=== PATIENT | female | born 1965 | race Caucasian/White ===

== ENCOUNTER 2017-04-11 19:17 | Observation (INO) | payer BC ==
[~2017-04-11] VITALS: Ht 167.6 cm; Wt 103.9 kg
[~2017-04-11 19:17] MED LIST: BENICAR20 MG PO; BISOPROLOL/HCTZ PO; CHOLESTEROL MED PO; OMEPRAZOLE20 MG; PANTOPRAZOLE SO40 MG PO
[2017-04-11 22:52] LABS: BASOPHILS # (AUTO) 0.1 (0.0-0.1); BASOPHILS % 0.8 % (0.0-1.0); EOSINOPHILS # (AUTO) 0.4 (0.0-0.4); HEMATOCRIT 40.2 % (34.2-44.1); HEMOGLOBIN 13.5 g/dL (12.0-16.0); LYMPHOCYTES # (AUTO) 2.4 (1.0-3.2); LYMPHOCYTES % 37.7 % (18.0-39.1); MEAN CORPUSCULAR HEMOGLOBIN 28.2 pg (28-32); MEAN CORPUSCULAR HGB CONC 33.6 g/dL (31-35); MEAN CORPUSCULAR VOLUME 83.9 fL (81-99); MONOCYTES # (AUTO) 0.4 (0.2-0.8); NEUTROPHILS % 47.2 % (38.7-80.0); PLATELET COUNT 282 x10e3/uL (140-360); RED BLOOD COUNT 4.79 x10e6/uL (3.6-5.1); RED CELL DISTRIBUTION WIDTH 12.9 % (11.7-14.4)
[2017-04-11 22:55] LABS: BILIRUBIN,URINE NEGATIVE (NEGATIVE); KETONES,URINE NEGATIVE (NEGATIVE); LEUKOCYTE ESTERASE ,URINE 1+ (NEGATIVE); NITRITE,URINE NEGATIVE (NEGATIVE); PROTEIN,URINE DIPSTICK NEGATIVE (NEGATIVE); URINE UROBILINOGEN 0.2 mg/dL (0.2 - 1)
[2017-04-11 22:57] LABS: INR 0.97; PROTHROMBIN TIME 12.1 seconds (11.9-14.5)
[2017-04-11 22:57] LABS: CLARITY,URINE CLEAR (CLEAR); COLOR,URINE STRAW (YELLOW)
[2017-04-11 22:58] LABS: PARTIAL THROMBOPLASTIN TIME 28.4 seconds (23.8-35.5)
[2017-04-11] MEDS ORDERED: ASPIRIN 81 MG CHEW TAB PO ONE (23:00)
[2017-04-11 23:02] LABS: BACTERIA,URINE FEW /HPF; EPITHELIAL CELLS,URINE FEW /LPF
[2017-04-11 23:07] LABS: ALANINE AMINOTRANSFERASE 29 IU/L (0-55); ALBUMIN 4.4 g/dL (3.5-5.0); ALBUMIN/GLOBULIN RATIO 1.2 (0.8-2.0); ALKALINE PHOSPHATASE 100 IU/L (40-150); ANION GAP 15.9 mmol/L (8-16); BLOOD UREA NITROGEN 13 mg/dL (7-26); BUN/CREATININE RATIO 15 (6-25); CALCIUM 9.6 mg/dL (8.4-10.2); CARBON DIOXIDE 24 mmol/L (22-29); CHLORIDE 106 mmol/L (98-107); CREATINE KINASE 114 IU/L (29-168); CREATININE, SERUM 0.87 mg/dL (0.57-1.11); EST GLOMERULAR FILTRATION RATE > 60 ML/MIN (60-); GLUCOSE 96 mg/dL (74-118); POTASSIUM 3.9 mmol/L (3.5-5.1); SODIUM 142 mmol/L (136-145)
--- NOTE | 2017-04-11 23:50 | Diagnostic Imaging Report ---
EXAMINATION: CHEST SINGLE (PORTABLE) INDICATION: Chest pain. COMPARISON: None FINDINGS: TUBES and LINES: None. LUNGS: Lungs are well inflated. Lungs are clear. There is no evidence of pneumonia or pulmonary edema. PLEURA: No pleural effusion or pneumothorax. HEART AND MEDIASTINUM: The cardiomediastinal silhouette is unremarkable. BONES AND SOFT TISSUES: No acute osseous lesion. Anterior cervical spine fusion. Soft tissues are unremarkable. UPPER ABDOMEN: No free air under the diaphragm. IMPRESSION: No acute thoracic abnormality. Signed by: Dr. Evan Valadez M.D. on 04/11/2017 11:46 PM
--- NOTE | 2017-04-12 01:04 | Diagnostic Imaging Report ---
EXAMINATION: Head CT without contrast. HISTORY:Headache. COMPARISON:None. TECHNIQUE: Multidetector axial images were obtained from the foramen magnum to the vertex without contrast. The images were reconstructed using brain and bone algorithms. Thin section brain images were reformatted into coronal and sagittal planes. Intravenous contrast: None IMAGE QUALITY: Acceptable. FINDINGS: Skull/scalp: No abnormality. Parenchyma: No abnormal density. No acute hemorrhage, mass or acute major vascular territorial infarct. Arteries: No density suggestive of thrombosis. Dural sinuses: No abnormal density suggestive of thrombosis. Ventricles: No hydrocephalus or displacement. Extra-axial spaces: No abnormal density. Brain volume: Normal for age. Craniocervical junction: No mass, Chiari malformation, or basilar invagination. Sella: No mass. Paranasal/mastoid sinuses: Imaged portions unremarkable. IMPRESSION: No intracranial abnormality. Signed by: Dr. Emani Simon M.D. on 04/12/2017 1:01 AM
[2017-04-12] MEDS ORDERED: KETOROLAC TROMETHAMINE 30 MG/ML VIAL IV STA (01:19)
[2017-04-12] MEDS ORDERED: CEFTRIAXONE SOD 1 GM VIAL IV SCH (01:30)
--- OUTSIDE RECORDS SUMMARY | 2017-04-12 02:44 | XMS REPORT ---
Author Author [facility] Address Unknown Phone Unavailable Care Team Providers Care Plush Weaver Name Role Phone ISAAC BLAKE Unavailable Unavailable Problems This patient has no known problems. Allergies, Adverse Reactions, Alerts This patient has no known allergies or adverse reactions. Medications This patient has no known medications. Results Test Description Test Time Test Comments Text Results Atomic Results Result Comments CT BRAIN WO [place] [address] Patient Name: RAJAT HICKMAN MR #: [id number] : 1965 Age/Sex: 51/F Req #: [id number] Adm Physician: Ordered by: ISAAC BLAKE MD Report #: [id number] Location: ER Room/Bed: Procedure: [id number] CT/CT BRAIN WO Exam Date: Exam Time: REPORT STATUS: Signed EXAMINATION: Head CT without contrast. HISTORY: Headache. COMPARISON:None. TECHNIQUE: Multidetector axial images were obtained from the foramen magnum to the vertex without contrast. The images were reconstructed using brain and bone algorithms. Thin section brain images were reformatted into coronal and sagittal planes. Intravenous contrast: None IMAGE QUALITY: Acceptable. FINDINGS: Skull/ scalp: No abnormality. Parenchyma: No abnormal density. No acute hemorrhage, mass or acute major vascular territorial infarct. Arteries: No density suggestive of thrombosis. Dural sinuses: No abnormal density suggestive of thrombosis. Ventricles: No hydrocephalus or displacement. Extra-axial spaces: No abnormal density. Brain volume: Normal for age. Craniocervical junction: No mass, Chiari malformation, or basilar invagination. Sella: No mass. Paranasal/ mastoid sinuses: Imaged portions unremarkable. IMPRESSION: No intracranial abnormality. Signed by: Dr. Emani Simon M.D. on 2017 1:01 AM Dictated By: EMANI SIMON MD 0 Transcribed By: TRAN on 04/12/17100 COPY TO: ISAAC BLAKE MD CHEST SINGLE (PORTABLE) [place] [address] Patient Name: RAJAT HICKMAN MR #: [id number] : 1965 Age/Sex: 51/F Req #: [id number] Adm Physician: Ordered by: ISAAC BLAKE MD Report #: [id number] Location: ER Room/Bed: Procedure: [id number] DX/CHEST SINGLE (PORTABLE) Exam Date: 04/11/17 Exam Time: 2305 REPORT STATUS: Signed EXAMINATION: CHEST SINGLE (PORTABLE) INDICATION: Chest pain. COMPARISON: None FINDINGS: TUBES and LINES: None. LUNGS: Lungs are well inflated. Lungs are clear. There is no evidence of pneumonia or pulmonary edema. PLEURA: No pleural effusion or pneumothorax. HEART AND MEDIASTINUM: The cardiomediastinal silhouette is unremarkable. BONES AND SOFT TISSUES: No acute osseous lesion. Anterior cervical spine fusion. Soft tissues are unremarkable. UPPER ABDOMEN: No free air under the diaphragm. IMPRESSION: No acute thoracic abnormality. Signed by: Dr. Evan Valadez M.D. on 04/11/2017 11: 46 PM Dictated By: EVAN GABRIEL MD 45 Transcribed By: TRAN on 04/11/172345 COPY TO: ISAAC BLAKE MD
[2017-04-12] MEDS ORDERED: ONDANSETRON HCL INJ 2 MG/ML VIAL IV PRN (02:45)
[2017-04-12] MEDS ORDERED: KETOROLAC TROMETHAMINE 30 MG/ML VIAL IV PRN (02:45)
[2017-04-12] MEDS ORDERED: NITROGLYCERIN 0.4 MG SUBL SL PRN (02:45)
[2017-04-12 05:37] LABS: CREATINE KINASE 82 IU/L (29-168)
[2017-04-12] MEDS ORDERED: ASPIRIN 81 MG ENTERIC COATED PO SCH (09:00)
[2017-04-12] MEDS ORDERED: FAMOTIDINE 20 MG/2 ML VIAL IV SCH (09:00)
[2017-04-12] MEDS ORDERED: AMLODIPINE BESYLATE 5 MG TAB PO SCH (09:00)
[2017-04-12 12:07] LABS: CHOL/HDL RATIO 5.9 (3.0-3.6)
[2017-04-12] MEDS ORDERED: REGADENOSON 0.4 MG/5 ML SYR IV ONE (12:21)
[2017-04-12] MEDS ORDERED: HCTZ PO PRN (13:30)
[2017-04-12] MEDS ORDERED: BISOPROLOL PO PRN (13:30)
[2017-04-12] MEDS ORDERED: [UNRECOGNIZED DRUG - REMARK] PO PRN (13:30)
[2017-04-12 13:35] VITALS: BP 164/82
--- NOTE | 2017-04-12 14:09 | Consultation ---
DATE OF CONSULTATION: April 12, 2017 CARDIAC CONSULTATION REASON FOR CONSULTATION: Chest pain. HISTORY: A delightful 51-year-old lady who is known with hypertension, GERD and degenerative joint disease of the right knee. Patient was in her usual status of health. She was not feeling well. She was having headaches. She is not feeling herself. Also, she complained of pain over the left breast. She came to the emergency room. She told me her blood pressure was elevated at 200. Currently her blood pressure is good. She is not compliant with her amlodipine. She is followed by a bank vault attendant who is following her. Her latest stress test was 2 years ago. Currently she is feeling better. She describes her illness starting with headache, nauseated, not feeling well and she almost vomited. She was very weak. She was drained. Patient's EKG showed normal sinus rhythm. Lateral T-wave inversions were noted. Currently she is feeling better. Her headache subsiding, her nausea/vomiting is better, and her chest pain almost gone. Her cardiac enzymes were normal. REVIEW OF SYSTEMS: Was done to all systems, will be summarized for clarity. GENERAL: No fever. No chills. No recent cold-like illness. HEENT: No congestion. PULMONARY: No cough. No hemoptysis. CARDIAC: Patient's activities are limited because of her knee. At her level of activity, there is no angina. : No hematuria. No dysuria. NEUROMUSCULAR: Back pain. SOCIAL HISTORY: Patient is nonsmoker. Not alcohol drinker. She lives with her family. 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 HOME MEDICATIONS: Omeprazole and amlodipine 2.5 mg a day. ALLERGIES: BACTRIM. PAST MEDICAL HISTORY: 1. Hypertension. 2. GERD. 3. Severe right knee pain. 4. Similar episode like that 2 years ago. Questionable details. No surgery. 5. twice. 6. Breast reduction surgery. 7. Tummy tuck. 8. Cervical spine surgery. 9. Right knee surgery. FAMILY HISTORY: Mother alive, doing well. She does not have anything. Occasional irregular heart beating but no coronary artery disease. Father of colon cancer. No brother. Four healthy sisters. PHYSICAL EXAMINATION: VITALS: Height of 5 feet 6 inches, weight of 230 pounds. Blood pressure 110/80. Heart rate of 70. Respiratory rate of 18. HEENT: Pupils are reactive. NECK: No elevation of jugular venous pulsation. No bruit. CHEST: Clear to auscultation and percussion. HEART: PMI 5th left intercostal space. Normal 1st and 2nd heart sounds. ABDOMEN: Soft with good bowel sounds. EXTREMITIES: No cyanosis. No clubbing. No edema. NEUROLOGIC: Awake, alert, oriented. No motor or sensory deficits. LABORATORY DATA: Cardiac enzymes are normal. Sodium of 142, potassium 3.9, BUN of 13, creatinine of 0.9. Hemoglobin of 13.5, hematocrit 40%. EKG showing normal sinus rhythm, lateral T-wave changes. Chest x-ray showed no major abnormalities. CT head no acute changes. IMPRESSION AND PLAN: 1. Hypertension. 2. Obesity. 3. Nausea/vomiting. Questionable etiology. 4. Vague chest pain. 5. No recent travel to suggest PE, or pulmonary embolism. 6. Severe degenerative joint disease of the right knee. Cardiac-negrete, would recommend doing stress test. It will be Lexiscan because of patient's inability to exercise. Patient's questions are answered. Will follow patient's progression with you and would like to thank you for your kind referral. Job#: [id number] EV
[2017-04-12 16:03] VITALS: BP 170/81
--- NOTE | 2017-04-12 18:44 | History and Physical ---
Patient is a 51-year-old female with a past medical history positive for hypertension and hypercholesterolemia. Patient came in with chest pain. She was found to have very high blood pressure. Patient already had an adenosine Cardiolite stress test. Report is pending. Dr. Becerra has been consulted from the cardiology point of view. The chest pain has resolved. Apparently, the chest pain was like a tightness that radiated to the left upper extremity and continuously apparently. REVIEW OF SYSTEMS CARDIOVASCULAR: She has chest pain which is resolved. No palpitations. RESPIRATORY: She did have shortness of breath. GASTROINTESTINAL: She had nausea and vomiting with the chest pain, which are resolved. No diarrhea. No blood in the stools. No hematemesis. Occasionally, she has left upper quadrant pain. GENITOURINARY: No frequency. No dysuria. ALLERGIES: SHE IS ALLERGIC TO SULFA DRUGS. SOCIAL HISTORY: She does not smoke. She drinks occasionally. PAST MEDICAL HISTORY: History of hypertension, gastroesophageal reflux disease and hypercholesterolemia. PHYSICAL EXAMINATION HEART: Shows regular rhythm. Normal S1 and S2 sounds. LUNGS: Clear bilaterally. ABDOMEN: Soft. EXTREMITIES: Show no evidence of edema or trauma. Troponin times 2 are negative. The EKG showed normal sinus rhythm, nonspecific abnormalities. On the BMP, sodium 142, potassium 3.9, chloride 106, CO2 24, BUN 13, creatinine 0.87, glucose 96. On the CBC, white blood count 6.32, hemoglobin 13.5, hematocrit 40.2, and platelet count 282,000. PT 12.1, INR 0.87 and PTT 28.4. AST 21, ALT 29, total bilirubin 0.3, alkaline phosphatase 100. FINAL IMPRESSION 1. Chest pain. 2. Hypertension. 3. Obesity. 4. Hypercholesterolemia. 5. She has also some evidence of a urinary tract infection. PLAN OF TREATMENT: Continue Rocephin 1 g IVPB daily. Nitroglycerin 0.4 mg sublingual every 5 minutes p.r.n. for chest pain. No more than 3 tablets. Continue Pepcid 20 mg twice a day, Zofran 4 mg q.4 h. as needed, Toradol 50 mg q.6 h. as needed, amlodipine 5 mg daily. Continue aspirin 81 mg daily. Resume home medications. We are waiting for the adenosine Cardiolite done by Dr. Becerra, paper coating supervisor, today and the rest of treatment will depend on the test results. Job#: [id number] RI
--- NOTE | 2017-04-12 19:02 | Cardiology Report ---
DATE OF STUDY: April 12, 2017 LEXISCAN NUCLEAR STRESS TEST INDICATION FOR STUDY: Chest pain, inability to exercise. TECHNICAL DETAILS: After risks, benefits, pros and cons of a Lexiscan nuclear stress test were explained to the patient, patient agreed to proceed. Patient had a stress/rest protocol. Initially she was brought down to the stress lab where a 12-lead classroom monitor and blood pressure monitor were obtained. She received a dose of Lexiscan 0.4 mg intravenously followed by 11-mCi dose of technetium 99 tetrofosmin intravenously. Resting heart rate went from a baseline of 65 beats per minute to a maximum of 93 beats per minute, and blood pressure went from a baseline of 151/99 to 173/93. Baseline EKG revealed normal sinus rhythm, nonspecific T-wave inversions in I, AVL, V5, V6, and with Lexiscan infusion there were no ischemic EKG changes or symptoms. She was, after 25 minutes, then taken to the SPECT camera for resting myocardial perfusion imaging. After waiting an appropriate amount of time, she was brought back to the nuclear lab where she received a 33-mCi dose of technetium 99 tetrofosmin intravenously and then, after 40 minutes, was taken to the SPECT camera for stress myocardial perfusion imaging. FINDINGS 1. Stress myocardial perfusion imaging appears to have normal tracer uptake. However, the quality of the imaging is poor, likely due to diminished stress dose. 2. Resting myocardial perfusion imaging reveals normal tracer uptake. 3. The following gated measurements were obtained: End-diastolic volume was 89 mL, end-systolic volume 30 mL, left ventricular ejection fraction was calculated to be 66% with normal wall motion. CONCLUSIONS 1. Probably normal myocardial perfusion imaging study with noteworthy decreased quality due to poor signal characteristics of stress imaging. 1. Normal left ventricular function with ejection fraction calculated to be 66%. 2. Findings of this stress test were explained to the patient including limitations. Job#: [id number] EV MTDClayton
[2017-04-12 20:00] VITALS: BP 151/74
[2017-04-13] MEDS ORDERED: OLMESARTAN 20 MG TAB PO SCH (09:00)
[2017-04-13] MEDS ORDERED: PANTOPRAZOLE SOD 40 MG TABEC PO SCH (09:00)
== END 2017-04-12 21:58 | disposition home or self-care (01) ==
LOC: ER 19:17 → ERHOLD 04-12 02:41 → IMCU 04-12 13:02
PROVIDERS: ADMIT Internal Medicine; ATTEND Internal Medicine
DX: R07.2 Precordial pain (principal); R51 Headache; I10 Essential (primary) hypertension; N39.0 Urinary tract infection, site not specified; N30.01 Acute cystitis with hematuria; Z88.2 Allergy status to sulfonamides; E66.9 Obesity, unspecified; K21.9 Gastro-esophageal reflux disease without esophagitis; M17.11 Unilateral primary osteoarthritis, right knee; Z68.37 Body mass index [BMI] 37.0-37.9, adult
CPT/HCPCS: 36415 ×2; 70450; 71045; 78452; 80053; 80061; 81001; 82550 ×2; 82553 ×2; 83880; 84443; 84484 ×2; 85025; 85610; 85730; 87086; 93005; 93017; 93306; 99285; A9502; G0378; J0696; J1885

== ENCOUNTER → 2017-05-23 | Day surgery (SDC) | payer BC ==
[~2017-05-23] MED LIST changes: +AMLODIPINE BES2.5 MG PO; +FENTANYL CITRATE/PF 100MCG/2 ML INJ ONE; +LIDOCAINE HCL 2% LOCAL INJ 5 ML SDV VIAL INJ ONE; +MIDAZOLAM HCL 2 MG/2 ML VIAL ONE; +PROPOFOL IV EMULSION 10 MG/ML 50 ML VIAL ONE
--- OUTSIDE RECORDS SUMMARY | 2017-05-23 07:58 | XMS REPORT | Continuity of Care Document ---
Author Author [facility] Organization [facility] Address [address] [place] [address] Phone Unavailable Care Team Providers Care Retail Store Assistant Name Role Phone NO, PCP PCP Unavailable Insurance Providers Guarantor Kristi Ritchie Vinicius Address [address] [place] [address] Email [email or web address] Payer [facility] Policy Number [id number] Subscriber's Name RitchieKristi Relationship 21 Unknown Group Number [id number] Group Name [facility] [employer] Effective Date 15 Advance Directives Directive Response Recorded Date/Time Does the patient have an advance directive? No 04/12/17 1:35pm If yes, is advance directive on file with [facility]? No 04/12/17 1:35pm If not on file with [facility] will patient provide a copy? No 04/12/17 1:35pm Do you have a Directive to Physician? No 04/11/17 7:15pm Do you have a Medical Power of School Age Teacher? No 04/11/17 7:15pm Do you have an out of hospital Do Not Resuscitate Order? No 04/11/17 7:15pm Do you have any special needs we should be aware of? No 04/11/17 7:15pm Do you have a support person here with you today? Yes 04/11/17 7:15pm Did patient receive Notice of Privacy Practices? Yes 04/11/17 7:15pm Did patient receive patient rights and responsibilities? Yes 04/11/17 7:15pm Problems Medical Problem Onset Date Status Chest pain Unknown Headache Unknown Hypertension Unknown UTI (urinary tract infection) Unknown Medications Current Home Medications Medication Dose Units Route Directions Days Qty Instructions Start Date Bisoprolol/Hctz 1 Tab Oral Daily as needed for High Blood Pressure Cholesterol Med Oral Daily Olmesartan Medoxomil (Benicar) 20 Mg Tablet 20 Mg Oral Daily 30 Tab Pantoprazole Sodium (Protonix) 40 Mg Tablet. 40 Mg Oral Daily Past Home Medications Medication Directions Ordered Status Omeprazole 20 Mg Capsule.dr Discontinued Social History Social History Problem Response Recorded Date/Time Onset Date Status Hx Psychiatric Problems No 04/12/2017 1:35pm Not Applicable Not Applicable Hx Eating Disorder No 04/12/2017 1:35pm Not Applicable Not Applicable Hx Substance Use Disorder No 04/12/2017 1:35pm Not Applicable Not Applicable Hx Depression No 04/12/2017 1:35pm Not Applicable Not Applicable Hx Alcohol Use No 04/12/2017 1:35pm Not Applicable Not Applicable Hx Substance Use Treatment No 04/12/2017 1:35pm Not Applicable Not Applicable Hx Physical Abuse No 04/12/2017 1:35pm Not Applicable Not Applicable Smoking Status Start Date Stop Date Never Smoker Hospital Discharge Instructions No hospital discharge instruction information available. Plan of Care Discharge Date 04/12/17 9:58pm Disposition HOME, SELF-CARE Instructions/Education Provided Chest Pain - Chest Wall Prescriptions See Medication Section Additional Instructions/Education Follow up with primary care physician for UTI. Functional Status Query Response Date Recorded Assistive Devices None April 12, 2017 1:35pm Ambulation Ability Independent April 12, 2017 1:35pm Toileting Ability Independent April 12, 2017 6:10pm Allergies, Adverse Reactions, Alerts Allergen Type Severity Reaction Status Last Updated Sulfamethoxazole Allergy Mild RASH Active 08/11/09 Trimethoprim Allergy Mild RASH Active 08/11/09 Immunizations No immunization information available. Vital Signs Acute Vital Signs Vital Response Date/Time Temperature (Fahrenheit) 98.0 degrees F (97.6 - 99.5) 04/12/2017 8:00pm Pulse Pulse Rate (adult) 74 bpm (60 - 90) 04/12/2017 8:00pm Respiratory Rate 18 bpm (12 - 24) 04/12/2017 8:00pm Blood Pressure 151/74 mm Hg 04/12/2017 8:00pm Height 5 ft 6 in 04/11/2017 7:54pm Weight 229 lb 04/12/2017 1:35pm Body Mass Index 37.0 kg/m^2 04/12/2017 1:35pm Results Laboratory Results Test Name Result Units Flags Reference Collection Date/Time Result Date/ Time Comments White Blood Count 6.32 x10e3/uL 4.8-10.8 04/11/2017 7:51pm 04/11/2017 10:55pm Red Blood Count 4.79 x10e6/uL 3.6-5.1 04/11/2017 7:51pm 04/11/2017 10: 55pm Hemoglobin 13.5 g/dL 12.0-16.0 04/11/2017 7:51pm 04/11/2017 10:55pm Hematocrit 40.2 % 34.2-44.1 04/11/2017 7:51pm 04/11/2017 10:55pm Mean Corpuscular Volume 83.9 fL 81-99 04/11/2017 7:51pm 04/11/2017 10: 55pm Mean Corpuscular Hemoglobin 28.2 pg 28-32 04/11/2017 7:51pm 04/11/2017 10:55pm Mean Corpuscular Hemoglobin Concent 33.6 g/dL 31-35 04/11/2017 7:51pm 04/11/2017 10:55pm Red Cell Distribution Width 12.9 % 11.7-14.4 04/11/2017 7:51pm 2017 10:55pm Platelet Count 282 x10e3/uL 140-360 04/11/2017 7:51pm 04/11/2017 10: 55pm Neutrophils (%) (Auto) 47.2 % 38.7-80.0 04/11/2017 7:51pm 04/11/2017 10 :55pm Lymphocytes (%) (Auto) 37.7 % 18.0-39.1 04/11/2017 7:51pm 04/11/2017 10 :55pm Monocytes (%) (Auto) 7.0 % 4.4-11.3 04/11/2017 7:51pm 04/11/2017 10: 55pm Eosinophils (%) (Auto) 7.0 % H 0.0-6.0 04/11/2017 7:51pm 04/11/2017 10: 55pm Basophils (%) (Auto) 0.8 % 0.0-1.0 04/11/2017 7:51pm 04/11/2017 10: 55pm IM GRANULOCYTES % 0.3 % 0.0-1.0 04/11/2017 7:51pm 04/11/2017 10:55pm Neutrophils # (Auto) 3.0 2.1-6.9 04/11/2017 7:51pm 04/11/2017 10: 55pm Lymphocytes # (Auto) 2.4 1.0-3.2 04/11/2017 7:51pm 04/11/2017 10: 55pm Monocytes # (Auto) 0.4 0.2-0.8 04/11/2017 7:51pm 04/11/2017 10:55pm Eosinophils # (Auto) 0.4 0.0-0.4 04/11/2017 7:51pm 04/11/2017 10: 55pm Basophils # (Auto) 0.1 0.0-0.1 04/11/2017 7:51pm 04/11/2017 10:55pm Absolute Immature Granulocyte (auto 0.02 x10e3/uL 0-0.1 04/11/2017 7: 51pm 04/11/2017 10:55pm Prothrombin Time 12.1 seconds 11.9-14.5 04/11/2017 7:51pm 04/11/2017 11 :02pm Prothromb Time International Ratio 0.97 04/11/2017 7:51pm 2017 11:02pm Oral Anticoagulant Therapy INR Values: 1. Low Intensity Therapy 1.5 - 2.0 2. Moderate Intensity Therapy 2.0 - 3.0 3. High Intensity Therapy(1) 2.5 - 3.5 4. High Intensity Therapy(2) 3.0 - 4.0 5. Panic Value INR > 5.0 Activated Partial Thromboplast Time 28.4 seconds 23.8-35.5 04/11/2017 7: 51pm 04/11/2017 11:02pm Urine Color STRAW YELLOW 04/11/2017 8:00pm 04/11/2017 10:57pm Urine Clarity CLEAR CLEAR 04/11/2017 8:00pm 04/11/2017 10:57pm Urine Specific [place] 1.005 L 1.010-1.025 04/11/2017 8:00pm 2017 10:57pm Urine pH 7 5 - 7 04/11/2017 8:00pm 04/11/2017 10:57pm Urine Leukocyte Esterase 1+ H NEGATIVE 04/11/2017 8:00pm 04/11/2017 10 :57pm Urine Nitrite NEGATIVE NEGATIVE 04/11/2017 8:00pm 04/11/2017 10:57pm Urine Protein NEGATIVE NEGATIVE 04/11/2017 8:00pm 04/11/2017 10:57pm Urine Glucose (UA) NEGATIVE NEGATIVE 04/11/2017 8:00pm 04/11/2017 10: 57pm Urine Ketones NEGATIVE NEGATIVE 04/11/2017 8:00pm 04/11/2017 10:57pm Urine Urobilinogen 0.2 mg/dL 0.2 - 1 04/11/2017 8:00pm 04/11/2017 10: 57pm Urine Bilirubin NEGATIVE NEGATIVE 04/11/2017 8:00pm 04/11/2017 10: 57pm Urine Blood TRACE H NEGATIVE 04/11/2017 8:00pm 04/11/2017 10:57pm Urine WBC 11-20 /HPF H 0-5 04/11/2017 8:00pm 04/11/2017 11:02pm Urine RBC 6-10 /HPF H 0-5 04/11/2017 8:00pm 04/11/2017 11:02pm Urine Bacteria FEW /HPF NONE 04/11/2017 8:00pm 04/11/2017 11:02pm Urine Epithelial Cells FEW /LPF NONE 04/11/2017 8:00pm 04/11/2017 11: 02pm Sodium Level 142 mmol/L 136-145 04/11/2017 7:51pm 04/11/2017 11:08pm Potassium Level 3.9 mmol/L 3.5-5.1 04/11/2017 7:51pm 04/11/2017 11: 08pm Chloride Level 106 mmol/L 98-107 04/11/2017 7:51pm 04/11/2017 11:08pm Carbon Dioxide Level 24 mmol/L 22-04/11/2017 7:51pm 04/11/2017 11: 08pm Anion Gap 15.9 mmol/L 8-16 04/11/2017 7:51pm 04/11/2017 11:08pm Blood Urea Nitrogen 13 mg/dL 7-04/11/2017 7:51pm 04/11/2017 11:08pm Creatinine 0.87 mg/dL 0.57-1.11 04/11/2017 7:51pm 04/11/2017 11:08pm BUN/Creatinine Ratio 15 6-25 04/11/2017 7:51pm 04/11/2017 11:08pm Estimat Glomerular Filtration Rate > 60 ML/MIN 60- 04/11/2017 7:51pm 11:08pm Ranges were taken from the National Kidney Disease Education Program and the National Kidney Foundation literature. Reference ranges: 60 or greater: Normal 16-59 (for 3 consecutive months): Chronic kidney disease 15 or less: Kidney failure Glucose Level 96 mg/dL 74-118 04/11/2017 7:51pm 04/11/2017 11:08pm Calcium Level 9.6 mg/dL 8.4-10.2 04/11/2017 7:51pm 04/11/2017 11:08pm Total Bilirubin < 0.3 mg/dL 0.2-1.2 04/11/2017 7:51pm 04/11/2017 11: 08pm Aspartate Amino Transf (AST/SGOT) 21 IU/L 5-34 04/11/2017 7:51pm 2017 11:08pm Alanine Aminotransferase (ALT/SGPT) 29 IU/L 0-55 04/11/2017 7:51pm 11:08pm Total Protein 8.0 g/dL 6.5-8.1 04/11/2017 7:51pm 04/11/2017 11:08pm Albumin 4.4 g/dL 3.5-5.0 04/11/2017 7:51pm 04/11/2017 11:08pm Globulin 3.6 g/dL H 2.3-3.5 04/11/2017 7:51pm 04/11/2017 11:08pm Albumin/Globulin Ratio 1.2 0.8-2.0 04/11/2017 7:51pm 04/11/2017 11: 08pm Alkaline Phosphatase 100 IU/L 40-150 04/11/2017 7:51pm 04/11/2017 11: 08pm Triglycerides Level 185 MG/DL H 0-149 04/12/2017 5:00am 04/12/2017 12: 22pm Cholesterol Level 260 MD/DL H 0-199 04/12/2017 5:00am 04/12/2017 12: 22pm Less than 200 mg/dL Low Risk 201 - 239 mg/dL Borderline Risk 240 mg/dl and greater High Risk LDL Cholesterol 179 MG/DL H 60-130 04/12/2017 5:00am 04/12/2017 12:22pm HDL Cholesterol 44 MG/DL 40-60 04/12/2017 5:00am 04/12/2017 12:22pm Cholesterol/HDL Ratio 5.9 H 3.0-3.6 04/12/2017 5:00am 04/12/2017 12: 22pm B-Type Natriuretic Peptide < 10.0 pg/mL 0-100 04/11/2017 7:51pm 2017 11:18pm Creatine Kinase 88 IU/L 29-168 04/12/2017 2:10pm 04/12/2017 3:01pm Creatine Kinase MB 1.00 ng/mL 0-5.0 04/12/2017 2:10pm 04/12/2017 3: 12pm Troponin I 0.003 ng/mL 0-0.300 04/12/2017 2:10pm 04/12/2017 3:12pm Thyroid Stimulating Hormone (TSH) 2.401 uIU/mL 0.350-4.940 04/11/2017 7: 51pm 04/12/2017 12:35am Procedures Procedure Status Date Provider(s) Computed tomography of brain without radiopaque contrast Active 04/12/17 ISAAC BLAKE MD Encounters Encounter Location Arrival/Admit Date Discharge/Depart Date Attending Provider Discharged Inpatient (obs) [facility] 04/12/17 2:41am 9:58pm MICHELLE ERVIN MD
--- NOTE | 2017-05-23 10:54 | Operative Report ---
DATE OF PROCEDURE: May 23, 2017 REFERRING PHYSICIAN: Dr. Michelle Meza PROCEDURES PERFORMED 1. Esophagogastroduodenoscopy with esophageal dilatation and biopsies. 2. Colonoscopy with polypectomy. INDICATIONS FOR EGD: Dysphagia to solids, heartburn and indigestion. INDICATIONS FOR COLONOSCOPY: Colorectal cancer screening, personal history of colon polyps, father with colon cancer. MEDICATION: Patient was done under MAC. Please see anesthesiologist's note. PROCEDURE: With the patient in the left lateral decubitus position, the flexible fiberoptic Olympus gastroscope was introduced into the esophagus under direct visualization without any difficulty. Some longitudinal furrows were noted, which are compatible with eosinophilic esophagitis and multiple biopsies were obtained. A mild stricture was noted at the GE junction that was dilated to size 50-[place] Montano. The scope was then advanced with ease into the stomach. Mucosa overlying the antrum and the body revealed some patchy erythema and mild to moderate edema, and biopsies were obtained and sent to stain for H. pylori. Multiple hyperplastic appearing polyps were noted in the body of the stomach. Some were partially excised with the cold biopsy forceps. The pylorus was of normal contour and shape. It was intubated with ease. The scope was advanced all the way to the 2nd portion of the duodenum. The scope was then withdrawn slowly. Mucosa overlying the proximal 2nd portion and the duodenal bulb appeared to be within normal limits. The scope was then withdrawn back into the stomach and retroflexed. The mucosa overlying the fundus and the cardia appeared to be within normal limits. The scope was then straightened out. The stomach was decompressed. The scope was subsequently withdrawn. Patient tolerated the procedure well. IMPRESSION 1. Rule out eosinophilic esophagitis, biopsies obtained. 2. Esophageal stricture at gastroesophageal junction dilated to a size 50-[place] Montano. 3. Gastritis, biopsied. Biopsies sent to stain for Helicobacter pylori. 4. Gastric polyps, body, hyperplastic appearing, some partially excised with the cold biopsy forceps. PLAN: Follow up histology. Increase Protonix to 40 mg 1 p.o. a.c. b.i.d. Patient was then turned around. After adequate lubrication of the anal canal, a flexible fiberoptic Olympus colonoscope was inserted into the rectum with ease and advanced all the way to the cecum. It was then withdrawn slowly. Mucosa overlying the cecum, ascending colon, transverse colon appeared to be within normal limits. Some diverticular disease was noted in the sigmoid colon. One polyp was hot biopsied from the sigmoid colon. One polyp was hot biopsied from the rectum. The scope was then retroflexed into the distal rectum. Small internal hemorrhoids were noted, none of which was actively bleeding. The scope was then straightened out. The rectosigmoid area, as well as the distal rectal area were decompressed. The scope was subsequently withdrawn. Patient tolerated the procedure well. IMPRESSION 1. Sigmoid colon polyp, hot biopsied. 2. Diverticulosis. 3. Rectal polyp, hot biopsied. 4. Internal hemorrhoids, none actively bleeding. PLAN: Follow up histology. Initiate high-fiber and low-fat diet. Initiate high-fiber supplement. Patient will need a followup colonoscopy in 3 years. Job#: [id number] [place] cc:MICHELLE MEZA MD
== END | disposition home or self-care (01) ==
LOC: OR 07:56
PROVIDERS: ATTEND Internal Medicine Gastroenterology
DX: Z12.11 Encounter for screening for malignant neoplasm of colon (principal); K63.5 Polyp of colon; K31.7 Polyp of stomach and duodenum; K62.1 Rectal polyp; K29.70 Gastritis, unspecified, without bleeding; K22.2 Esophageal obstruction; K20.0 Eosinophilic esophagitis; K57.30 Diverticulosis of large intestine without perforation or abscess without bleeding; K64.8 Other hemorrhoids; K21.9 Gastro-esophageal reflux disease without esophagitis; I10 Essential (primary) hypertension; Z88.1 Allergy status to other antibiotic agents; Z88.2 Allergy status to sulfonamides; Z80.0 Family history of malignant neoplasm of digestive organs
CPT/HCPCS: 43239; 43450; 45384; J2001; J2250